=== PATIENT | male | born 1950 | race Caucasian/White ===

== ENCOUNTER → 2017-12-22 | Outpatient (CLI) | payer OTHER, MEDICARE ==
[~2017-12-22] MED LIST: ACET500; CHOL10002 PO; CIPR500 PO; COLE1 PO; COMPLETE MULTI1 EAC1 PO; CYCL10 PO; Cialis20 MG PO; DOCSEN PO; EXTRA STRENGTH500 MG PO; FINA5 PO; GLUC500 PO; GLUCOSAMINE CH1 EAC1 PO; GLUCOSAMINE CH1 EAC3 PO; HYDR-86; HYDR-86 PO; HYDR1TAB94; LANS30EC PO; LISINOPRIL 30 MG PO; METF500 PO; METO10 PO; METO50ER PO; MSM1500 MG PO; MULTI VITAMIN1 EACH PO; MULTIVITAMIN PO; Multiple Vitam1 EAC1 PO; Super B Comple150 MG PO; TAMS.4ER PO; TOCO1000 PO; TOCO400 PO; Toprol Xl50 MG PO; Tylenol325 MG PO; VITAMIN B COMP1 EACH PO; VITAMIN B COMPLEX PO; VITAMIN D32000 UNIT PO; Vitamin B Comple1 EA PO
[2017-12-22 16:29] LABS: Source, Urine Clean Catch
[2017-12-22 16:43] LABS: Bacteria Many /hpf; Mucus Light (0-Heavy); Red Blood Cells, Urine 0-2 /hpf (0-2); Squamous Epithelial Cells Rare /hpf (Few); Transitional Epithelial Cells Rare /hpf (0-Rare); White Blood Cells, Urine 25-50 /hpf (0-5)
== END | disposition home or self-care (01) ==
LOC: LAB SHORT 16:26 → LAB EV 16:26
PROVIDERS: Physician Assistant
DX: R30.0 Dysuria (principal)
CPT/HCPCS: 81015; 87077; 87086; 87186

== ENCOUNTER 2018-06-02 07:04 | Day surgery (SDC) | payer OTHER, MEDICARE ==
[~2018-06-02] VITALS: Ht 175.3 cm; Wt 136.8 kg
[~2018-06-02 07:04] MED LIST changes: +CRANBERRY250 MG PO; +FLONASE ALLERG9.9 ML; +Hydrocodone-Ap1 EA26 PO; +OMEGA 3-6-9 11200 MG PO
== END 2018-06-02 10:29 | disposition home or self-care (01) ==
LOC: ORSCSDS 07:04
PROVIDERS: Internal Medicine Gastroenterology
PROC: 0DB48ZX Excision of Esophagogastric Junction, Via Natural or Artificial Opening Endoscopic, Diagnostic (ICD-10-PCS; principal; 2018-06-02 08:30)
PROC: 0DBK8ZX Excision of Ascending Colon, Via Natural or Artificial Opening Endoscopic, Diagnostic (ICD-10-PCS; principal; 2018-06-02 08:30)
PROC: 0DB68ZX Excision of Stomach, Via Natural or Artificial Opening Endoscopic, Diagnostic (ICD-10-PCS; principal; 2018-06-02 08:30)
PROC: 0DBH8ZX Excision of Cecum, Via Natural or Artificial Opening Endoscopic, Diagnostic (ICD-10-PCS; principal; 2018-06-02 08:30)
DX: K22.70 Barrett's esophagus without dysplasia (principal); D12.0 Benign neoplasm of cecum; K31.7 Polyp of stomach and duodenum; D12.2 Benign neoplasm of ascending colon; K57.30 Diverticulosis of large intestine without perforation or abscess without bleeding; K64.8 Other hemorrhoids; Z12.11 Encounter for screening for malignant neoplasm of colon; Z86.010 Personal history of colon polyps; I10 Essential (primary) hypertension; I25.10 Atherosclerotic heart disease of native coronary artery without angina pectoris; E78.00 Pure hypercholesterolemia, unspecified; Z83.71 Family history of colonic polyps; G47.33 Obstructive sleep apnea (adult) (pediatric); E66.01 Morbid (severe) obesity due to excess calories; Z68.42 Body mass index [BMI] 45.0-49.9, adult; E11.9 Type 2 diabetes mellitus without complications; K21.9 Gastro-esophageal reflux disease without esophagitis; E78.1 Pure hyperglyceridemia; F17.210 Nicotine dependence, cigarettes, uncomplicated; Z79.899 Other long term (current) drug therapy
CPT/HCPCS: 88305; J2250; J7120

== ENCOUNTER → 2019-03-20 | Outpatient (CLI) | payer OTHER, MEDICARE ==
[2019-03-20 08:51] LABS: Source, Urine Clean Catch
[2019-03-20 13:00] LABS: Bilirubin, Urine Neg (Neg); Blood, Urine Neg (Neg); Glucose Qualitative, Urine Neg (Neg); Ketones, Urine Neg (Neg); Leukocyte Esterase, Urine Neg (Neg); Nitrite, Urine Neg (Neg); Protein, Urine Neg (Neg); Specific Gravity, Urine 1.015 (1.003-1.022); Urobilinogen, Urine NORM (Normal)
[2019-03-20 13:26] LABS: Appearance, Urine Clear (Clear); Color, Urine Yellow (P-Yellow)
== END ==
LOC: LAB 08:51 → LAB SHORT 08:51
PROVIDERS: Nurse Practitioner Family
DX: R30.9 Painful micturition, unspecified (principal)
CPT/HCPCS: 81003

== ENCOUNTER 2019-07-05 11:25 | Day surgery (SDC) | payer MEDICARE, OTHER ==
[~2019-07-05] VITALS: Ht 175.3 cm; Wt 129.0 kg
== END 2019-07-05 14:06 | disposition home or self-care (01) ==
LOC: ORSCSDS 11:25
PROVIDERS: Internal Medicine Gastroenterology
PROC: 0DBL8ZX Excision of Transverse Colon, Via Natural or Artificial Opening Endoscopic, Diagnostic (ICD-10-PCS; principal; 2019-07-05 13:00)
PROC: 0DB58ZX Excision of Esophagus, Via Natural or Artificial Opening Endoscopic, Diagnostic (ICD-10-PCS; principal; 2019-07-05 13:00)
PROC: 0D758ZZ Dilation of Esophagus, Via Natural or Artificial Opening Endoscopic (ICD-10-PCS; principal; 2019-07-05 13:00)
PROC: 0DB68ZX Excision of Stomach, Via Natural or Artificial Opening Endoscopic, Diagnostic (ICD-10-PCS; principal; 2019-07-05 13:00)
DX: R13.10 Dysphagia, unspecified (principal); Z86.010 Personal history of colon polyps; K22.70 Barrett's esophagus without dysplasia; K31.7 Polyp of stomach and duodenum; D12.3 Benign neoplasm of transverse colon; K57.30 Diverticulosis of large intestine without perforation or abscess without bleeding; K64.8 Other hemorrhoids; K64.4 Residual hemorrhoidal skin tags; I10 Essential (primary) hypertension; G47.33 Obstructive sleep apnea (adult) (pediatric); Z87.891 Personal history of nicotine dependence; Z79.899 Other long term (current) drug therapy
CPT/HCPCS: 88305; 88342; J2704; J7120

== ENCOUNTER → 2019-08-24 | Outpatient (CLI) | payer MEDICARE, OTHER ==
[2019-08-24 14:41] LABS: BASOPHILS ABSOLUTE AUTO 0.06 K/mm3 (0.00-0.23); BASOPHILS PERCENT AUTO 1 % (0-2); EOSINOPHILS ABSOLUTE AUTO 0.21 K/mm3 (0.00-0.68); EOSINOPHILS PERCENT AUTO 3 % (0-6); Hematocrit 46.5 % (37.0-53.0); Hemoglobin 15.4 g/dL (13.5-17.5); IMMATURE GRAN ABSOLUTE AUTO 0.03 K/mm3 (0.00-0.10); IMMATURE GRAN PERCENT AUTO 0 % (0-1); LYMPHOCYTES ABSOLUTE AUTO 2.69 K/mm3 (0.84-5.20); LYMPHOCYTES PERCENT AUTO 37 % (21-46); MONOCYTES ABSOLUTE AUTO 0.71 K/mm3 (0.16-1.47); MONOCYTES PERCENT AUTO 10 % (4-13); Mean Corpuscular HGB 32.8 pg (26.0-34.0); Mean Corpuscular HGB Conc 33.1 g/dL (31.5-36.5); Mean Corpuscular Volume 99 fL (80-100); Mean Platelet Volume 10.5 fL (9.1-12.4); NEUTROPHILS ABSOLUTE AUTO 3.64 K/mm3 (1.96-9.15); NEUTROPHILS PERCENT AUTO 50 % (41-73); Platelet Count 176 K/mm3 (150-400); RDW Standard Deviation 46.8 fL (35.1-46.3); Red Blood Cell Count 4.69 M/mm3 (4.30-5.90); White Blood Cell Count 7.34 K/mm3 (4.00-11.30)
[2019-08-24 14:48] LABS: Anion Gap 7 mmol/L (6-16); Blood Urea Nitrogen 11 mg/dL (8-24); Bun/Creatinine Ratio 11.2 (12.0-20.0); CO2, Blood 28 mmol/L (21-32); Calcium, Blood 11.1 mg/dL (8.5-10.1); Chloride, Blood 104 mmol/L (98-108); Creatinine, Blood 0.98 mg/dL (0.60-1.20); Glomerular Filtration Rate >60 (60-); Glucose, Blood 89 mg/dL (70-99); Potassium, Blood 4.1 mmol/L (3.5-5.5); Sodium, Blood 139 mmol/L (136-145)
[2019-08-24 14:56] LABS: Troponin I <0.017 ng/mL (0.000-0.040)
== END | disposition home or self-care (01) ==
LOC: LAB EV 14:31 → LAB SHORT 14:31
PROVIDERS: Physician Assistant Surgical
DX: R06.00 Dyspnea, unspecified (principal)
CPT/HCPCS: 80048; 84484; 85025

== ENCOUNTER → 2019-09-12 | Outpatient (CLI) | payer MEDICARE, OTHER ==
[2019-09-12 14:24] LABS: Source, Urine Clean Catch
[2019-09-12 16:57] LABS: Bilirubin, Urine Neg (Neg); Blood, Urine 5+ (Neg); Glucose Qualitative, Urine Neg (Neg); Ketones, Urine Neg (Neg); Leukocyte Esterase, Urine 1+ (Neg); Nitrite, Urine Neg (Neg); Protein, Urine Neg (Neg); Urobilinogen, Urine NORM (Normal)
[2019-09-12 17:07] LABS: Appearance, Urine Clear (Clear); Color, Urine Yellow (P-Yellow)
[2019-09-12 17:08] LABS: Bacteria Few /hpf; Red Blood Cells, Urine 25-50 /hpf (0-2); Squamous Epithelial Cells Not Seen /hpf (Few)
== END | disposition home or self-care (01) ==
LOC: LAB SHORT 14:23 → LAB 14:23 → LAB FUT 09-10 16:00 → EDSTATUS 09-10 16:00
PROVIDERS: Urology
DX: N39.0 Urinary tract infection, site not specified (principal)
CPT/HCPCS: 81001; 87086

== ENCOUNTER → 2020-06-17 | Outpatient (CLI) | payer MEDICARE, OTHER ==
[2020-06-18 10:23] LABS: Calcium, Urine 21.5 mg/dL (< 17.5)
[2020-06-18 21:26] LABS: Creatinine Urine 77.9 mg/dL (27.00-270.00)
== END | disposition home or self-care (01) ==
LOC: LAB SHORT 20:00
PROVIDERS: Internal Medicine Endocrinology, Diabetes & Metabolism
DX: E83.52 Hypercalcemia (principal)
CPT/HCPCS: 81050; 82340; 82570

== ENCOUNTER 2020-09-14 01:33 | Emergency (ER) | payer MEDICARE, OTHER ==
[~2020-09-14] VITALS: Ht 175.3 cm; Wt 129.3 kg
[2020-09-14 03:23] LABS: BASOPHILS ABSOLUTE AUTO 0.08 K/mm3 (0.00-0.23); BASOPHILS PERCENT AUTO 1 % (0-2); EOSINOPHILS ABSOLUTE AUTO 0.26 K/mm3 (0.00-0.68); EOSINOPHILS PERCENT AUTO 4 % (0-6); Hematocrit 40.7 % (37.0-53.0); Hemoglobin 13.9 g/dL (13.5-17.5); IMMATURE GRAN ABSOLUTE AUTO 0.02 K/mm3 (0.00-0.10); IMMATURE GRAN PERCENT AUTO 0 % (0-1); LYMPHOCYTES ABSOLUTE AUTO 2.82 K/mm3 (0.84-5.20); LYMPHOCYTES PERCENT AUTO 46 % (21-46); MONOCYTES ABSOLUTE AUTO 0.61 K/mm3 (0.16-1.47); MONOCYTES PERCENT AUTO 10 % (4-13); Mean Corpuscular HGB 32.9 pg (26.0-34.0); Mean Corpuscular HGB Conc 34.2 g/dL (31.5-36.5); Mean Corpuscular Volume 96 fL (80-100); Mean Platelet Volume 10.2 fL (9.1-12.4); NEUTROPHILS ABSOLUTE AUTO 2.32 K/mm3 (1.96-9.15); NEUTROPHILS PERCENT AUTO 38 % (41-73); Platelet Count 179 K/mm3 (150-400); RDW Coefficient Variation 12.4 % (11.7-14.2); RDW Standard Deviation 43.7 fL (35.1-46.3); Red Blood Cell Count 4.22 M/mm3 (4.30-5.90); White Blood Cell Count 6.11 K/mm3 (4.00-11.30)
[2020-09-14 03:41] LABS: Alanine Aminotransfer (ALT/SGP 27 U/L (12-78); Albumin, Blood 3.5 g/dL (3.4-5.0); Alk Phos 81 U/L (50-136); Anion Gap 3 mmol/L (6-16); Aspartate Aminotrans (AST/SGOT 19 U/L (12-37); Bilirubin, Total 0.4 mg/dL (0.1-1.0); Blood Urea Nitrogen 14 mg/dL (8-24); Bun/Creatinine Ratio 15.8 (12.0-20.0); CO2, Blood 29 mmol/L (21-32); Calcium, Blood 9.1 mg/dL (8.5-10.1); Chloride, Blood 110 mmol/L (98-108); Creatinine, Blood 0.89 mg/dL (0.60-1.20); Globulin, Blood 3.6 g/dL (2.2-4.0); Glomerular Filtration Rate >60 (60-); Glucose, Blood 116 mg/dL (70-99); Potassium, Blood 4.9 mmol/L (3.5-5.5); Sodium, Blood 142 mmol/L (136-145); Total Protein, Blood 7.1 g/dL (6.4-8.2)
== END 2020-09-14 04:25 | disposition home or self-care (01) ==
LOC: ER 01:33
PROVIDERS: Emergency Medicine
DX: K56.609 Unspecified intestinal obstruction, unspecified as to partial versus complete obstruction (principal); I10 Essential (primary) hypertension; E11.9 Type 2 diabetes mellitus without complications; Z79.899 Other long term (current) drug therapy; Z91.09 Other allergy status, other than to drugs and biological substances; Z88.0 Allergy status to penicillin; Z91.040 Latex allergy status; Z88.8 Allergy status to other drugs, medicaments and biological substances; Z87.891 Personal history of nicotine dependence
CPT/HCPCS: 36415; 80053; 83690; 85025; 93005; 93010; 99283-25; A9270

== ENCOUNTER → 2021-04-21 | Outpatient (CLI) | payer MEDICARE, OTHER | END | disposition home or self-care (01) | LOC: LAB SHORT 09:30 → LAB 09:30 | DX: Z48.02 Encounter for removal of sutures (principal); L72.0 Epidermal cyst; L08.9 Local infection of the skin and subcutaneous tissue, unspecified; B35.1 Tinea unguium | CPT/HCPCS: 87070; 87077; 87186; 87205 ==

== ENCOUNTER 2021-05-19 09:12 | Day surgery (SDC) | payer MEDICARE, OTHER ==
[~2021-05-19] VITALS: Ht 175.3 cm; Wt 132.3 kg
[2021-05-19] MEDS ORDERED: Phentermine HCl30 MG (09:42)
[2021-05-19] MEDS ORDERED: SILD25T (09:43)
--- NOTE | 2021-05-19 10:10 | NUR ---
05/19/21 1010 Pura Atkinson FIRST ATTEMPT MISSED BY FELIX IN THE RIGHT HAND. SECOND ATTEMPT MISSED IN THE RIGHT FOREARM BY RN, THIRD ATTEMPT SUCCESFUL IN THE RAC BY RN.
== END 2021-05-19 12:00 | disposition home or self-care (01) ==
LOC: ORSCSDS 09:12
PROVIDERS: Internal Medicine Gastroenterology
PROC: 0DJD8ZZ Inspection of Lower Intestinal Tract, Via Natural or Artificial Opening Endoscopic (ICD-10-PCS; principal; 2021-05-19 10:30)
PROC: 0DB58ZX Excision of Esophagus, Via Natural or Artificial Opening Endoscopic, Diagnostic (ICD-10-PCS; principal; 2021-05-19 10:30)
DX: R13.10 Dysphagia, unspecified (principal); K22.70 Barrett's esophagus without dysplasia; Z86.010 Personal history of colon polyps; K31.7 Polyp of stomach and duodenum; Z80.0 Family history of malignant neoplasm of digestive organs; K57.30 Diverticulosis of large intestine without perforation or abscess without bleeding; K64.4 Residual hemorrhoidal skin tags; K21.9 Gastro-esophageal reflux disease without esophagitis; E78.5 Hyperlipidemia, unspecified; G47.33 Obstructive sleep apnea (adult) (pediatric); Z87.891 Personal history of nicotine dependence; Z79.899 Other long term (current) drug therapy
CPT/HCPCS: 88305; J0330; J0461; J2250; J2405; J2704; J7120

== ENCOUNTER → 2022-10-06 | Outpatient (CLI) | payer MEDICARE ==
[~2022-10-06] MED LIST changes: +Phentermine HCl30 MG; +SILD25T
[2022-10-06 09:57] LABS: Source, Urine Clean Catch
[2022-10-06 12:45] LABS: Appearance, Urine Clear (Clear); Bilirubin, Urine Neg (Neg); Blood, Urine Neg (Neg); Color, Urine Yellow (P-Yellow); Glucose Qualitative, Urine Neg (Neg); Ketones, Urine Neg (Neg); Leukocyte Esterase, Urine Neg (Neg); Nitrite, Urine Neg (Neg); Protein, Urine Neg (Neg); Urobilinogen, Urine NORM (Normal)
== END | disposition home or self-care (01) ==
LOC: LAB SHORT 09:56 → LAB 09:56
PROVIDERS: Nurse Practitioner Family
DX: N39.0 Urinary tract infection, site not specified (principal)
CPT/HCPCS: 81003

== ENCOUNTER 2023-03-11 19:11 | Emergency (ER) | payer MEDICARE ==
[~2023-03-11] VITALS: Ht 175.3 cm; Wt 134.7 kg
[2023-03-11 19:17] VITALS: BP 161/82
[2023-03-11 20:32] LABS: BASOPHILS ABSOLUTE AUTO 0.06 K/mm3 (0.00-0.23); BASOPHILS PERCENT AUTO 1 % (0-2); EOSINOPHILS ABSOLUTE AUTO 0.14 K/mm3 (0.00-0.68); EOSINOPHILS PERCENT AUTO 2 % (0-6); Hematocrit 42.4 % (37.0-53.0); Hemoglobin 14.3 g/dL (13.5-17.5); IMMATURE GRAN ABSOLUTE AUTO 0.02 K/mm3 (0.00-0.10); IMMATURE GRAN PERCENT AUTO 0 % (0-1); LYMPHOCYTES ABSOLUTE AUTO 2.43 K/mm3 (0.84-5.20); LYMPHOCYTES PERCENT AUTO 37 % (21-46); MONOCYTES ABSOLUTE AUTO 0.83 K/mm3 (0.16-1.47); MONOCYTES PERCENT AUTO 13 % (4-13); Mean Corpuscular HGB 32.7 pg (26.0-34.0); Mean Corpuscular HGB Conc 33.7 g/dL (31.5-36.5); Mean Corpuscular Volume 97 fL (80-100); Mean Platelet Volume 10.1 fL (9.1-12.4); NEUTROPHILS ABSOLUTE AUTO 3.17 K/mm3 (1.96-9.15); NEUTROPHILS PERCENT AUTO 48 % (41-73); Platelet Count 170 K/mm3 (150-400); RDW Coefficient Variation 12.7 % (11.7-14.2); RDW Standard Deviation 45.7 fL (35.1-46.3); Red Blood Cell Count 4.37 M/mm3 (4.30-5.90); White Blood Cell Count 6.65 K/mm3 (4.00-11.30)
[2023-03-11 20:59] LABS: Albumin, Blood 3.3 g/dL (3.4-5.0); Albumin/Globulin Ratio 0.8 (0.8-1.8); Bilirubin, Total 0.2 mg/dL (0.1-1.0); Bun/Creatinine Ratio 10.7 (12.0-20.0); Calcium, Blood 9.4 mg/dL (8.5-10.1); Creatinine, Blood 1.4 mg/dL (0.60-1.20); Globulin, Blood 3.9 g/dL (2.2-4.0); Potassium, Blood 4.2 mmol/L (3.5-5.5); Total Protein, Blood 7.2 g/dL (6.4-8.2)
[2023-03-11] MEDS ORDERED: LASIX20 M2 PO (22:42)
[2023-03-11] MEDS ORDERED: POTCHL20ER PO (22:42)
[2023-03-16] MEDS ORDERED: Calcium Acetat667 MG (18:49)
== END 2023-03-11 22:53 | disposition home or self-care (01) ==
LOC: ER 19:11
PROVIDERS: Physician Assistant
DX: I50.9 Heart failure, unspecified (principal); I44.0 Atrioventricular block, first degree; I49.3 Ventricular premature depolarization; Z79.899 Other long term (current) drug therapy; Z79.51 Long term (current) use of inhaled steroids; Z87.891 Personal history of nicotine dependence
CPT/HCPCS: 71046; 80053; 83880; 84484; 85025; 93005; 93010; 99285-25

== ENCOUNTER 2023-03-16 16:19 | Inpatient (IN) | payer MEDICARE ==
[~2023-03-16] VITALS: Ht 175.3 cm; Wt 131.4 kg
[~2023-03-16 16:19] MED LIST changes: +LASIX20 M2 PO; +POTCHL20ER PO
[2023-03-16 16:49] LABS: BASOPHILS ABSOLUTE AUTO 0.08 K/mm3 (0.00-0.23); BASOPHILS PERCENT AUTO 1 % (0-2); EOSINOPHILS ABSOLUTE AUTO 0.16 K/mm3 (0.00-0.68); EOSINOPHILS PERCENT AUTO 2 % (0-6); Hematocrit 46.1 % (37.0-53.0); Hemoglobin 15.7 g/dL (13.5-17.5); IMMATURE GRAN ABSOLUTE AUTO 0.04 K/mm3 (0.00-0.10); IMMATURE GRAN PERCENT AUTO 1 % (0-1); LYMPHOCYTES ABSOLUTE AUTO 3.33 K/mm3 (0.84-5.20); LYMPHOCYTES PERCENT AUTO 42 % (21-46); MONOCYTES ABSOLUTE AUTO 0.84 K/mm3 (0.16-1.47); MONOCYTES PERCENT AUTO 11 % (4-13); Mean Corpuscular HGB 33.2 pg (26.0-34.0); Mean Corpuscular HGB Conc 34.1 g/dL (31.5-36.5); Mean Corpuscular Volume 98 fL (80-100); Mean Platelet Volume 10.4 fL (9.1-12.4); NEUTROPHILS ABSOLUTE AUTO 3.54 K/mm3 (1.96-9.15); NEUTROPHILS PERCENT AUTO 44 % (41-73); Platelet Count 187 K/mm3 (150-400); RDW Coefficient Variation 12.6 % (11.7-14.2); RDW Standard Deviation 45.4 fL (35.1-46.3); Red Blood Cell Count 4.73 M/mm3 (4.30-5.90); White Blood Cell Count 7.99 K/mm3 (4.00-11.30)
[2023-03-16 17:34] LABS: Creatinine, Blood 1.4 mg/dL (0.60-1.20); Potassium, Blood 4.1 mmol/L (3.5-5.5)
[2023-03-16 17:35] LABS: Albumin, Blood 3.9 g/dL (3.4-5.0); Bilirubin, Total 0.4 mg/dL (0.1-1.0); Bun/Creatinine Ratio 14.3 (12.0-20.0); Calcium, Blood 10.2 mg/dL (8.5-10.1); Globulin, Blood 4.1 g/dL (2.2-4.0)
[2023-03-16] MEDS ORDERED: FENO160 PO (18:45)
[2023-03-16] MEDS ORDERED: LANS30EC PO (18:46)
[2023-03-16] MEDS ORDERED: GLUCHON PO (18:48)
[2023-03-16] MEDS ORDERED: PSYSENPA (18:49)
[2023-03-16] MEDS ORDERED: Norco 5-325 Ta1 EACH (18:49)
[2023-03-16] MEDS ORDERED: MELATONIN5 M1 (18:49)
[2023-03-16] MEDS ORDERED: Calcium Acetat667 MG PO (18:49)
[2023-03-16 22:27] LABS: International Normalized Ratio 1.01; Prothrombin Time Results 10.6 Sec (9.7-11.5)
[2023-03-17 09:02] LABS: BASOPHILS ABSOLUTE AUTO 0.06 K/mm3 (0.00-0.23); BASOPHILS PERCENT AUTO 1 % (0-2); EOSINOPHILS ABSOLUTE AUTO 0.06 K/mm3 (0.00-0.68); EOSINOPHILS PERCENT AUTO 1 % (0-6); Hematocrit 44.5 % (37.0-53.0); IMMATURE GRAN ABSOLUTE AUTO 0.04 K/mm3 (0.00-0.10); IMMATURE GRAN PERCENT AUTO 1 % (0-1); LYMPHOCYTES ABSOLUTE AUTO 1.95 K/mm3 (0.84-5.20); LYMPHOCYTES PERCENT AUTO 32 % (21-46); MONOCYTES ABSOLUTE AUTO 0.48 K/mm3 (0.16-1.47); MONOCYTES PERCENT AUTO 8 % (4-13); Mean Corpuscular HGB 32.7 pg (26.0-34.0); Mean Corpuscular HGB Conc 33.7 g/dL (31.5-36.5); Mean Corpuscular Volume 97 fL (80-100); Mean Platelet Volume 10.5 fL (9.1-12.4); NEUTROPHILS ABSOLUTE AUTO 3.57 K/mm3 (1.96-9.15); NEUTROPHILS PERCENT AUTO 58 % (41-73); Platelet Count 198 K/mm3 (150-400); RDW Standard Deviation 46.3 fL (35.1-46.3); Red Blood Cell Count 4.59 M/mm3 (4.30-5.90); White Blood Cell Count 6.16 K/mm3 (4.00-11.30)
[2023-03-17 09:20] LABS: Albumin, Blood 3.7 g/dL (3.4-5.0); Albumin/Globulin Ratio 0.9 (0.8-1.8); Bilirubin, Total 0.4 mg/dL (0.1-1.0); Bun/Creatinine Ratio 15.9 (12.0-20.0); Calcium, Blood 9.5 mg/dL (8.5-10.1); Creatinine, Blood 1.32 mg/dL (0.60-1.20); Potassium, Blood 3.8 mmol/L (3.5-5.5); Total Protein, Blood 7.7 g/dL (6.4-8.2)
[2023-03-17 11:04] VITALS: BP 133/68
--- NOTE | 2023-03-17 16:28 | NUR ---
CALLED DR WASHINGTON PT HAS ORDER FOR IVF. HE IS TAKING IN PO FLUIDS AND HIS CURRENT IV ACCESS IS BEING USED FOR HEPARIN DRIP. ORDER RECIEVED TO DC THE IVF
[2023-03-17 17:12] VITALS: BP 123/78
--- NOTE | 2023-03-17 18:47 | NUR ---
SHIFT SUMMARY- PT ADMITTED THROUGH THE ED FOR PE'S. PT ALERT ANND ORIENTED INDEPENDENT IN THE ROOM. PT HAS HEPARIN DRIP GOING. HE HAS HAD NO S&S OF DISTRESS SINCE ADMIT. THE PLAN IS TO TRANSITION HIM TO PO MEDICATION FOR TREATMENT OF PE'S AND DC HOME. PT WAS UP TO THE BATHROOM INDEPENDENTLY. PT IS CURRENTLY GETTING READY FOR BED. HE STATED HE HAS NOT BEEN ABLE TO SLEEP MUCH IN THE LAST COUPLE OF DAYS R/T HIS DIFFICULTY BREATHING. PT HAS HHAD NO DIFFICULTY BREATHING SINCE ADMIT, HE STATES HE FEELS MUCH BETTER.
[2023-03-17 20:16] VITALS: BP 136/80
--- NOTE | 2023-03-18 01:17 | NUR ---
SHIFT SUMMERY, PT EARLYER IN SHIFT HAD FAMILY AROUND BEDSIDE. PT WAS MOANING AND C/O PAIN. PT GIVEN IV FENTANL. AND PT APPEARS TO BE VERY COMFORTABLE. PT SLEEPING WELL RESPERATIONS EVEN AND UNLABORED. HAVE NOT NEEDED TO ADMINISTER MORE MEDS AT THIS TIME.
[2023-03-18 01:27] VITALS: BP 141/83
--- NOTE | 2023-03-18 02:16 | NUR ---
SHIFT LAWANDA, PT RESTING IN RECLINER . PT HAS CPAP ON AND OFF BUT IS 93-96% EVEN ON RA. PT SEEMS A LITTLE ANXIOUS. PT CALLED AND STATED HE WAS HAVING LEFT UPPER CHEST PAIN 4-11/20. VITALS WNL TELE WITH NO CHANGE. RT WENT IN ALSO TO CHECKIN ON PT. CALLED AND PAIN MEDS ORDRED. PT GIVEN IV FENT 50 MCG. PT ALSO C/O HAVING A STUFFY NOSE. PT SAID CPAP MADE HIM FEL LIKE HE HAD SWALLOWED AIR AND PT BURPPED UP AIR AND THEN FELT A LITTLE MORE RELIEF. PT UP AT SERGEY STANDS TO USE URINAL. CALL LIGHT IN REACH.
[2023-03-18 04:11] VITALS: BP 124/74
[2023-03-18 07:27] VITALS: BP 118/82
--- NOTE | 2023-03-18 07:31 | NUR ---
CALLED DR BURT- BEDSIDE REPORT COMPLETED WITH NIGHT RN. PT STATED IN REPORT THAT HE, FOR SOME REASON, WAS SWALLOWING AIR WITH THE CPAP (PT USING HIS HOME CPAP) THIS HAS NOT BEEN A PROBLEM BEFORE. THIS "SWALLOWING AIR" WAS CAUSING A MID STERNAL CHEST PAIN THAT FELT LIKE A FULLNESS, WELL A SHARP JOLENE IN THE LEFT CHEST. THIS MORNING THE PT HAD ANOTHER EPISODE OF THIS, HE STATED THERE WAS 5/10 CHEST PAIN IN THE LEFT CHEST. BIOX BRIEFLY ALARMED THAT HIS HR WAS 40. THEN THE PAIN WAS GONE. CALLED TELE THE PT HAD AN 8 BEAT RUN OF BIGEMINAL PVC'S ABOUT [address] BURT ABOUT THE CHEST PAIN THE PT IS EXPERIENCING, LEFT A MESSAGE WAITING FOR A CALL BACK.
--- NOTE | 2023-03-18 08:38 | NUR ---
SPOKE TO DR BURT- RECIEVED ORDER TO HOLD METOPROLOL TODAY. SPOKE TO HIM ABOUT THE PT 9 SECOND RUN OV BIGEMINAL PVC'S ACCOMPANIED WITH CHEST PAIN. TROP HAS BEEN CHECKED PRIOR, NO ORDER TO RECHECK.
--- NOTE | 2023-03-18 11:22 | NUR ---
PT GOT UP INDEPENDENTLY TO THE BATHROOM, HE WAS NOTED TO APPEARED TO BE BREATHING HARDER HE WAS GETTING BACK TO HIS CHAIR. CONT BIOX SHOWED SATS AT 84%. ONCE THE PT WAS SEATED O2 SATS INCREASED BACK TO 92%. PLACED NC AT 2L NEXT TO THE PT SO HE CAN USE O2 WITH AMBULATION TO THE BATHROOM. PT SEATED IN THE CHAIR NO CURRENT S&S OF DISTRESS NOTED SATS GREATER THAN 90% ON ROOM AIR.
--- NOTE | 2023-03-18 18:35 | NUR ---
SHIFT SUMMARY- PT STILL ON HEPARIN DRIP. DR BURT IS CONSULTING IR FOR POSSIBLE THROMBECTOMY OF THE PT PE R/T THE EXTREME RIGHT HEART STRAIN SEEN ON THE ECHO. PT HAD SOME CP THIS MORNING, SEE PREVIOUS NOTES FOR DETAILS. PT CURRENTLY SITTING UP IN HIS CHAIR, TELE ON, CONT BIOX IN PLACE, NC AT THE READY CHAIRSIDE, FOR USE WITH AMBULATION, HEPARIN DRIP INFUSING. NO CURRENT S&S OF DISTRESS, FAMILY AT THE BEDSIDE.
[2023-03-18 19:35] VITALS: BP 125/81
[2023-03-19 02:48] VITALS: BP 109/73
--- NOTE | 2023-03-19 03:05 | NUR ---
SHIFT SUMMERY, PT HAD A SHOWER TONIGHT. WAS MEDICATED WITH SLEEP AID AND RESTED IN CHAIR FOR SOME TIME THEN WENT TO LAY IN THE BED WITH HOB UP PT AT THIS TIME AWAKE. PT VOIDING FREQUENTLY IN URINAL. CALL LIGHT IN REACH PT UP TO BR AT SERGEY, PT STEADY ON HIS FEET.
[2023-03-19 05:24] LABS: BASOPHILS ABSOLUTE AUTO 0.08 K/mm3 (0.00-0.23); BASOPHILS PERCENT AUTO 1 % (0-2); EOSINOPHILS ABSOLUTE AUTO 0.13 K/mm3 (0.00-0.68); EOSINOPHILS PERCENT AUTO 2 % (0-6); Hematocrit 43.1 % (37.0-53.0); Hemoglobin 14.6 g/dL (13.5-17.5); IMMATURE GRAN ABSOLUTE AUTO 0.03 K/mm3 (0.00-0.10); IMMATURE GRAN PERCENT AUTO 1 % (0-1); LYMPHOCYTES ABSOLUTE AUTO 2.21 K/mm3 (0.84-5.20); LYMPHOCYTES PERCENT AUTO 38 % (21-46); MONOCYTES ABSOLUTE AUTO 0.54 K/mm3 (0.16-1.47); MONOCYTES PERCENT AUTO 9 % (4-13); Mean Corpuscular HGB 32.8 pg (26.0-34.0); Mean Corpuscular HGB Conc 33.9 g/dL (31.5-36.5); Mean Corpuscular Volume 97 fL (80-100); Mean Platelet Volume 10.8 fL (9.1-12.4); NEUTROPHILS ABSOLUTE AUTO 2.87 K/mm3 (1.96-9.15); NEUTROPHILS PERCENT AUTO 49 % (41-73); Platelet Count 176 K/mm3 (150-400); RDW Coefficient Variation 12.7 % (11.7-14.2); RDW Standard Deviation 45.4 fL (35.1-46.3); Red Blood Cell Count 4.45 M/mm3 (4.30-5.90); White Blood Cell Count 5.86 K/mm3 (4.00-11.30)
[2023-03-19 07:24] VITALS: BP 131/69
[2023-03-19] MEDS ORDERED: TRAZ50 PO (12:06)
[2023-03-19] MEDS ORDERED: XARELTO20 MG PO (12:07)
[2023-03-19 16:57] VITALS: BP 120/73
--- NOTE | 2023-03-19 18:20 | NUR ---
CALL FROM DR ACEVES; TROPONINS NEGATIVE. NEW ORDER TO GIVE NITRO EVERY 5 MINS FOR 3X FOR CHEST PAIN. HOLD BETA CLEVE MED TOMORROW RELATED TO AV BLOCK. FIRST DOSE OF TRAM; PT REPORTS NEW CHEST PAIN. BP 107/72 SECOND DOSE; [place] REPORTS CHEST PAIN PERSISTANT. THE CHEST PAIN TO THE LEFT CHEST AND UNDER ARM IMPROVING BUT NEW PAIN IN CENTER OF CHEST. BP BEFORE SECOND DOST 121/69. BP AFTER SECOND DOSE 94/62. PT REPORTS CENTER CHEST PAIN DROPPED FROM 6/10 TO A 2/10. PT REPORTS FIVE MINS AFTER SECOND DOSE CHEST PAIN RESOLVED.
[2023-03-19 19:05] VITALS: BP 112/66
--- NOTE | 2023-03-19 19:38 | NUR ---
SHIFT SUMMARY PT A/OX4. PT HERE FOR BILAT PE AND CONT ON HEPARIN DRIP. PT ON ROOM AIR T/O THE DAY WITH NEED FOR OXYGEN WHEN SLEEPING ONLY. PT WAS WALKING WITH RT FOR HOME O2 EVAL WHEN HE BEGAN TO EXPEIENCE CHEST PAIN. CALL TO DR ACEVES--NEW ORDER FOR TROPONINS AND EKG. EKG SHOWS 1 DEGREE HEART BLOCK. TROPONINS NEGATIVE. DR ACEVES ORDERED NITRO---SEE NURSE NOTE ON ADMINISTRATION. PT HAD FAMILY AT BEDSIDE T/O THE DAY. HE CONTINUES TO REPORT BREATHING FEELS DIFFICULT. OXYGEN SATURATIONS REMAIN IN THE 90'S WHEN HE FEELS BREATHING IS DIFFICULT. PT HAS CONCERNS ABOUT RETURNING HOME WITH CPAP--NURSE COORDINATOR GOT ORDER FOR SLEEP STUDY. RT TO COMPLETE SLEEP STUDY TONIGHT USING HOME CPAP MACHINE. PT RMAINS ON TELE AND CONT BIOX. CALL LIGHT IN REACH. CALLS APPROPRIATELY.
--- NOTE | 2023-03-20 03:47 | NUR ---
shift summery, pt resting in bed, pt seemed to have slept well for some time. pt having a sleep study done but Rt equipment shut off for some reason so sleep study was not completed. pt awake at this time. has on cpap and seems to be tolerting CPAP well at this time. call light in reach.
[2023-03-20 04:06] VITALS: BP 97/73
[2023-03-20 05:15] LABS: Hematocrit 44.5 % (37.0-53.0); Hemoglobin 14.8 g/dL (13.5-17.5); Mean Platelet Volume 10.8 fL (9.1-12.4); Platelet Count 196 K/mm3 (150-400)
[2023-03-20 08:14] VITALS: BP 96/86
--- NOTE | 2023-03-20 13:18 | NUR ---
PT AMBULATED ALL THE WAY AROUND UNIT ON ROOM AIR, DENIED CHEST DISCOMFORT AND SOB. WALKED AT A PRETTY QUICK PACE. UPON RETURNING TO ROOM, O2 SAT SHOWED 95% ON ROOM AIR, HR 102 WHICH RECOVERED TO HIGH 80'S WITHIN A COUPLE OF MINUTES.
--- NOTE | 2023-03-20 15:07 | NUR ---
PATIENT DISCHARGED TO HOME ACCOMPANIED BY HIS . IV SALINE LOCK AND TELEMETRY REMOVED. PT AND SPOUSE VERBALIZED UNDERSTANDING OF D/C INSTRUCTIONS. OFF UNIT VIA W/C AT 1515. NO PERSONAL BELONGINGS LEFT BEHIND IN ROOM.
== END 2023-03-20 15:17 | disposition home or self-care (01) | DRG 175 ==
LOC: ER 16:19 → ERHOLD 16:20 → MEDS 03-17 10:57 → ENPENDDIS 03-19 15:11 → MEDS 03-20 15:17
PROVIDERS: Pharmacist; Student in an Organized Health Care Education/Training Program; ADMIT Internal Medicine
PROC: 5A09357 Assistance with Respiratory Ventilation, Less than 24 Consecutive Hours, Continuous Positive Airway Pressure (ICD-10-PCS; principal; 2023-03-17)
DX: I26.99 Other pulmonary embolism without acute cor pulmonale (principal); J96.01 Acute respiratory failure with hypoxia; Z68.41 Body mass index [BMI] 40.0-44.9, adult; E66.01 Morbid (severe) obesity due to excess calories; G47.33 Obstructive sleep apnea (adult) (pediatric); N18.30 Chronic kidney disease, stage 3 unspecified; E78.5 Hyperlipidemia, unspecified; I12.9 Hypertensive chronic kidney disease with stage 1 through stage 4 chronic kidney disease, or unspecified chronic kidney disease; M51.9 Unspecified thoracic, thoracolumbar and lumbosacral intervertebral disc disorder; E11.22 Type 2 diabetes mellitus with diabetic chronic kidney disease; K21.9 Gastro-esophageal reflux disease without esophagitis; E11.43 Type 2 diabetes mellitus with diabetic autonomic (poly)neuropathy; K31.84 Gastroparesis; I27.20 Pulmonary hypertension, unspecified; Z91.040 Latex allergy status; Z79.899 Other long term (current) drug therapy; Z88.8 Allergy status to other drugs, medicaments and biological substances; Z88.0 Allergy status to penicillin; Z79.891 Long term (current) use of opiate analgesic; Z90.49 Acquired absence of other specified parts of digestive tract; Z98.890 Other specified postprocedural states; Z87.891 Personal history of nicotine dependence; Z91.048 Other nonmedicinal substance allergy status; Z79.01 Long term (current) use of anticoagulants
CPT/HCPCS: 36415; 71046; 71260; 80053; 83880; 84484; 85014; 85018; 85025; 85049; 85379; 85520; 85610; 85730; 93005; 93010; 93306; 93970; 94660; 94761; 94762; 96374; 99285-25; A9270; G0378; J1644; J3010; Q9967

== ENCOUNTER → 2024-03-15 | Outpatient (CLI) | payer OTHER ==
[~2024-03-15] MED LIST changes: +Calcium Acetat667 MG PO; +FENO160 PO; +GLUCHON PO; +MELATONIN5 M1; +Norco 5-325 Ta1 EACH; +PSYSENPA; +TRAZ50 PO; +XARELTO20 MG PO
== END | disposition home or self-care (01) ==
LOC: LAB SHORT 17:52 → LAB 17:52
DX: H10.9 Unspecified conjunctivitis (principal)
CPT/HCPCS: 87070; 87077; 87186; 87205